=== PATIENT | male | born 1990 | race Caucasian/White ===

== ENCOUNTER 2018-05-01 14:47 | Emergency (ER) | payer OTHER ==
[~2018-05-01] VITALS: Ht 170.1 cm; Wt 63.5 kg
== END 2018-05-01 17:10 | disposition home or self-care (01) ==
LOC: ED 14:47
DX: S60.221A Contusion of right hand, initial encounter (principal); Z88.6 Allergy status to analgesic agent; Z88.8 Allergy status to other drugs, medicaments and biological substances; W22.8XXA Striking against or struck by other objects, initial encounter; Y93.89 Activity, other specified; Y92.89 Other specified places as the place of occurrence of the external cause; Y99.8 Other external cause status

== ENCOUNTER 2018-11-08 11:48 | Inpatient (IN) | payer OTHER ==
[~2018-11-08] VITALS: Ht 170.2 cm; Wt 56.4 kg
--- NOTE | ~2018-11-08 | CON ---
[place], [place] REPORT OF CONSULTATION NAME: SOFY MUNOZ UNIT #: [id number] ROOM: 425 DOCTOR: PATRICK, PHD AZAEL BIRTHDATE: [birth year] DOS: 11/09/2018 ADDENDUM PAST MEDICAL HISTORY: Chronic pancreatitis. MEDICATIONS: Tylenol, Dulcolax, Lovenox, Dilaudid, Toradol, Ativan, Zofran, Restoril. Maureen Smith, PhD CM:CONSTR:REPORT OF CONSULTATION 0914 11/22/18 1059 interface
--- NOTE | ~2018-11-08 | CON ---
[place], [place] REPORT OF CONSULTATION NAME: SOFY MUNOZ UNIT #: [id number] ROOM: 425 DOCTOR: PHD AZAEL SMTIH BIRTHDATE: [birth year] DOS: 11/09/2018 HISTORY OF PRESENT ILLNESS: The patient is a 27-year-old male referred by the hospitalist due to anxiety. He is presently on the 4th floor at [facility]. He lives with his fiancee and her mother. He is not working due to his issues with pancreatitis and is hoping to pursue disability. He does not drink alcohol, but endorsed tobacco and marijuana use. The patient was sitting in bed, in no apparent distress. Eye contact and social skills were poor. He appeared to be nodding off. He appeared to be very drowsy during the evaluation. Mood was irritable and affect was blunted. He denied suicidal and homicidal ideation, plan or intent. He is not currently receiving mental health services. Speech was low. Expressive and receptive language appeared within normal limits on a conversational basis. Thought process was goal directed. Thought content was negative for hallucinations and delusions. The patient was guarded and not cooperative with evaluation. He stated "if I want, I'll ask." He stated that he did not wish to continue with evaluation and is not looking for any counseling or psychiatric medications at this time. PAST MEDICAL HISTORY: Chronic pancreatitis. MEDICATIONS: Tylenol, Dulcolax, Lovenox, Dilaudid, Toradol, Ativan, Zofran, Restoril. DIAGNOSES: Cannabis use disorder, tobacco use disorder, unspecified anxiety disorder. RECOMMENDATIONS: The patient is not wishing to receive services at this time if that changes please reconsult. Thank you very much for this consult. Maureen Smith, PhD CM:CONSTR:REPORT OF CONSULTATION 1626 11/22/18 1057 interface
[2018-11-08 11:52] VITALS: BP 111/77
[2018-11-08 12:00] LABS: BILIRUBIN 1+ (NEGATIVE); BLOOD NEGATIVE (NEGATIVE); CLARITY SL CLOUDY (CLEAR); COLOR YELLOW (YELLOW); GLUCOSE NEGATIVE (NEGATIVE); KETONE TRACE (NEGATIVE); LEUKO ESTERASE NEGATIVE (NEGATIVE); NITRITE NEGATIVE (NEGATIVE); SPECIFIC GRAVITY 1.025 (1.005-1.030)
[2018-11-08 12:08] LABS: BACTERIA 1+; MUCOUS 2+
[2018-11-08 12:35] LABS: URINE AMPHETAMINES > 1000 (1000ng/ml); URINE BARBITURATES < 200 (200ng/ml); URINE BENZODIAZEPINES < 200 (200ng/ml); URINE CANNABINOIDS (THC) > 50 (50ng/ml); URINE COCAINE < 300 (300ng/ml); URINE METHADONE < 300 (300ng/ml); URINE OPIATES < 300 (300ng/ml)
[2018-11-08 12:36] LABS: URINE PHENCYCLIDINE < 25 (25ng/ml)
[2018-11-08 12:40] LABS: BASO # 0.1 10*3/uL (0.0-0.1); BASO % 0.8 % (0.0-1.0); EOS # 0.5 10*3/uL (0.0-0.4); EOS % 6.9 % (1.0-4.0); HEMATOCRIT 42.3 % (42.0-52.0); HEMOGLOBIN 14.7 g/dl (14.0-18.0); LYMPH # 2.1 10*3/uL (1.3-4.4); LYMPH % 32.9 % (27.0-41.0); MEAN CELL VOLUME 91.6 fl (80.0-94.0); MEAN CORPUSCULAR HGB 31.8 pg (27.0-31.0); MEAN CORPUSCULAR HGB CONC 34.8 g/dl (33.0-37.0); MEAN PLATELET VOLUME 9.5 fl (9.6-12.3); MONO # 0.5 10*3/uL (0.1-1.0); MONO % 7.1 % (3.0-9.0); NEUT # 3.4 10*3/uL (2.3-7.9); NEUT % 52.1 % (47.0-73.0); PLATELET COUNT AUTOMATED 317 10*3/uL (130-400); RED BLOOD COUNT 4.62 10*6/uL (4.50-5.90); RED CELL DISTRI WIDTH 11.9 % (0-14.5); WHITE BLOOD COUNT 6.5 10*3/uL (4.8-10.8)
[2018-11-08 12:50] LABS: ACT PARTIAL THROMBO TIME 23.9 SECONDS (20.8-31.5); INTERNATIONAL NORM RATIO 1.1 (2.0-3.5)
[2018-11-08 12:57] LABS: ALBUMIN 3.8 gm/dl (3.1-4.5); ALKALINE PHOSPHATASE 77 U/L (45-117); BUN 11 mg/dl (7-24); CHLORIDE 104 mmol/L (98-107); CREATININE 0.97 mg/dL (0.70-1.30); LIPASE 448 U/L (73-393); POTASSIUM 3.5 mmol/L (3.5-5.1); SGOT/AST 14 IU/L (3-35); SGPT/ALT 23 U/L (12-78); SODIUM 142 mmol/L (136-145); TOTAL PROTEIN 7.9 gm/dL (6.4-8.2)
[2018-11-08 13:03] LABS: ETHYL ALCOHOL < 3.0 mg/dl (<3)
[2018-11-08 13:50] VITALS: BP 105/59
--- NOTE | 2018-11-08 15:18 | NUR ---
PT STATES NONE OF THE PAIN MEDICATIONS ARE WORKING. DR MONTES NOTIFIED.
--- NOTE | 2018-11-08 15:30 | NUR ---
Dilaudid effective. Patient states "it took the edge off."
[2018-11-08 15:50] VITALS: BP 128/76
--- NOTE | 2018-11-08 15:51 | NUR ---
Dilaudid given for patient c/o abdominal pain. Will monitor.
--- NOTE | 2018-11-08 15:55 | NUR ---
A 27, admitted to , under the services of JOHNNY Panchal DO with a diagnosis of pancreatitis. Chief complaint is abdominal pain. Patient arrived via stretcher from ER. Monitor applied. Initial assessment completed. Vital signs taken and recorded. JOHNNY PANCHAL DO notified of admission to the unit. Orders received. See assessment for past medical history, medications and allergies. Patient and/or family oriented to unit. [address] visitation policy reviewed. Clothing/patient valuable form completed. YAHAIRA MOYER
[2018-11-08 16:00] VITALS: BP 128/75
--- NOTE | 2018-11-08 16:13 | NUR ---
Called Dr. Watson to let him know patient is extremely anxious. He is picking, scratching himself, pacing around the room, talking nonstop. Requested ativan.
--- NOTE | 2018-11-08 17:00 | NUR ---
Ativan given to obvious signs of anxiety. Patient is scratching himself, picking at his skin and pacing around room. Will monitor.
--- NOTE | 2018-11-08 17:12 | NUR ---
Notified Dr. Watson that patient stated "I want to fucking kill myself!" "Its a thought!" "You are not going to put me on fucking suicide watch!" "All I want is something to eat!" "I'm fucking starving!"
--- NOTE | 2018-11-08 18:20 | NUR ---
Dilaudid given per patient request for c/o abdominal pain. Will monitor. Ativan effective. Patient is showing less signs of anxiety and has calmed down.
--- NOTE | 2018-11-08 18:35 | NUR ---
Contacted U regarding consult for anxiety/anger/medication. No new orders physician to follow up at bedside.
--- NOTE | 2018-11-08 19:07 | NUR ---
Dilaudid somewhat effective. Patient satisfied.
--- NOTE | 2018-11-08 19:30 | NUR ---
PATIET IS VERY AGITATED AT THE NURSES STATION YELLING AND CURSING ABOUT BEING "UNCOMFORTABLE" AND NOBODY CAREING. "THIS IS WHY I DONT COME TO HOSPITALS, NOBODY CARES AND I DONT GET THE CARE I NEED. THE LAST HOSPITAL I WAS IN I LEFT IN HANDCUFFS, IM NOT GOING TO BE TREATED LIKE A BITCH." ADVISED PATIENT THAT THIS BEHAVIOR WAS NOT ACCEPTABLE. NOTIFIED HIM WHEN HE WAS DO FOR HIS NEX PAIN MEDICATION AND ADVISED HIM I WOULD TALK TO THE DOCTOR ABOUT HIS PAIN.
--- NOTE | 2018-11-08 19:31 | NUR ---
SPOKE WITH DR. MARCOS REGARDING PATIENTS PAIN. SHE STATED SHE WOULD INCREASE THE FREQUANCY OF HIS DILAUDED.
[2018-11-08 20:00] VITALS: BP 99/85
--- NOTE | 2018-11-08 20:45 | NUR ---
PATIENT CONTINUES TO COME TO NURSES STATION AND BE DISRUPTIVE. YELLING HE WAS PROMISED DEMEROL BETWEEN HIS DILAUDED AND HE IS BENNIE TO LEAVE. I ASKED WHO PROMISED HIM DEMOROL AND ADVISED ID SPEAK WITH THE DOCTOR AGAIN REGARDING THIS. PATIENT LEAVES NURSES STATION AND SHOUTS CONTINUOUSLY HE WALKS DOWN THE JOHN. SPOKE TO DR. MARCOS REGARDING THIS AT WHICH SHE STATED SHE WAS NOT GOING TO ORDER DEMEROL.
--- NOTE | 2018-11-08 21:00 | NUR ---
ADVISED PATIENT THAT DR. MARCOS DID NOT ORDER DEMEROL. PATIENT STATES "THIS PLACE IS A JOKE, YOU GUYS ARE SUPPOSE TO HELP PEOPLE." I ATTEMPTED TO EDUCATE THE PATIENT ON THE DOSE FREQUENCY AND OVERALL STRENGTH OF HIS PAIN MEDICATION AND HE WAS NOT RECEPTIVE STATING "YOU GUYS ARE SO STUPID NOTHING YOU HAVE DONE HAS HELPED ME".
--- NOTE | 2018-11-08 21:03 | NUR ---
CALLED NURSING CANCER PROGRAM COORDINATOR AT THIS TIME REGARDING PATIENTS BEHAVIOR. NURSING CANCER PROGRAM COORDINATOR IN ROOM WITH PATIENT AT THIS TIME. PATIENT IS AGAIN VERBALLY AGRESSIVE AND NOT RECEPTIVE OF REDIRECTION OR ANY ATTEMPT OF ANY COMMUNICATION. ADVISED PATIENT THAT HIS DILAUDED IS NOW AVAILABLE Q1 HOUR NEEDED. "SO IM JUST SUPPOSE TO SUFFER IN THE MEAN TIME".
--- NOTE | 2018-11-08 21:04 | NUR ---
MEDICATED PATIENT WITH DILAUDED IVP PER ORDER. PAIN LEVEL IS 9/10
--- NOTE | 2018-11-08 21:30 | NUR ---
PATIENT APPROACHES ME IM IN A PATIENTS ROOM (522) REGARDING WHEN HE CAN HAVE SOMETHING ELSE FOR PAIN. I ADVISED HIM THAT WE PREVIOUSLY DISCUSSED THIS AND ITS WRITTEN ON HIS WHITE BOARD. ASKED HIM TO PLEASE LEAVE THE PATIENTS ROOM. "ILL DO WHATEVER THE FUCK I WANT, IM A GROWN MAN AND NOBODY IS GOING TO TALK YTO ME LIKE DOG SHIT". PATIENT CONTINUELLY ROAMED THE JOHN WAITING FOR HIS NEXT AVAILABLE PAIN MEDICATION. WHEN ATTEMPTED TO HAVE PATIENT GO TO HIS ROOM HE STATED HE WAS TRYING TO GET COMFORTABLE AND WALKING HELPS.
--- NOTE | 2018-11-08 22:00 | NUR ---
DILAUDED NOT EFFECTIVE WITH PAIN STILL 9/10 PER PATIENT. ADMINISTERED ANOTHER DOSE OF DILAUDED AT THIS TIME FOR PAIN.
--- NOTE | 2018-11-08 23:00 | NUR ---
PATIENT IS CONSTANTLY WALKING IN THE HALLS. VERY UNSTEADY ON HIS FEET. STUMBLING AND DRIFTING INTO THE WALL. ADVISED PATIENT HE NEEDED TO GO TO HIS ROOM BEFORE HE FELL AND GOT HURT. PATIENT IS VERY ARGUMENTATIVE AND NOT COOPERATIVE AT THIS TIME. MANAGER ENVIRONMENTAL AFFAIRS NOTIFIED AND SECURITY CALLED. BOTH IN ROOM TO SPEAK WITH PATIENT. REMAINS VERBALLY AGRESSIVE. STATES HE IS GOING OUTSIDE FOR FRESH AIR. I ADVISED HIM THATS AGAINST POLICY AND HE WOULDNT BE ALOUD TO DO THAT. HE STATES HE WILL JUST SUFFER. HE STATES HE NEEDS TO SPEAK TO A PSYCHIATRIST. HE CANT JUST SIT IN THIS ROOM. ADVISED THAT HE IS A FALL RISK WITH THE MEDICATIONS THAT HE HAS BEEN RECEIVING.
--- NOTE | 2018-11-08 23:05 | NUR ---
PATIENT PULLED IV OUT. ESTABLISHED NEW IV ACCESS AT THIS TIME.
--- NOTE | 2018-11-08 23:11 | NUR ---
ADMINISERED IV DILAUDED PER ORDER FOR PAIN 06/28
[2018-11-09] VITALS: BP 111/84
--- NOTE | 2018-11-09 00:31 | NUR ---
ADMINISTERED IV ATIVAN AND IV DILAUDED PER ORDER FOR COMPLAINTS OF PAIN9/10 AND INCREASED ANXIETY AND AGITATION. PATIENT STATES HE NEEDS SOMETHING TYO HELP HIM RELAX SO HE CAN SLEEP.
--- NOTE | 2018-11-09 02:47 | NUR ---
PATIENT COMPLAINS OF PAIN 05/29. MEDICATED WITH IV DILAUDED PER ORDER.
--- NOTE | 2018-11-09 03:15 | NUR ---
PATIENT IS RESTING IN BED WITH NO SIGNS OF DISTRESS.
--- NOTE | 2018-11-09 03:56 | NUR ---
PATIENT STATES HIS PAIN IS UNCHANGED. STATES THE PAIN MEDICATION DOES NOTHING FOR HIM. MEDIACTED WITH IV DILAUDED PER ORDER.
--- NOTE | 2018-11-09 04:04 | NUR ---
NOTIFIED THE NURSING SUPERVISOPR OF THIS PATIENTS BEHAVIORS. FOOD EXPEDITOR IN ROOM TALKING TO PATIENT AT THIS TIME. PATIENT AGAIN NOT RECEPTIVE OF ANY ATTEMPT TO REDIRECT OR EVEN COMMUNICATE. HE IMMEDIATELY STARTS YELLING BEING VERY VERBALLY AGRESSIVE. ADVISED PATIENT AT THIS TIME HE IS GETTING DILAUDED Q1 HOUR.
--- NOTE | 2018-11-09 04:10 | NUR ---
IN TO CHECK ON PATIENT. HE IS SITTING ON THE FLOOR SLEEPING. ASKED PATIENT WHY HE WAS ON THE FLOOR AND HE STATES ITS COMFORTABEL TO SIT LIKE THIS AM I NOT ALLOWED. ADVISED PATIENT IF HE WANTS TO SIT ON THE FLOOR GO AHEAD.
--- NOTE | 2018-11-09 04:43 | NUR ---
PATIENT REQUESTING PAIN MEDICATIONS AT THIS TIME. ADVISED PATIENT THAT IT ISNT DUE AT THIS. HE STATES "IM TIRED OF THIS FUCKING BULLSHIT, IM GOING TO JUST LEAVE AND IM HOMELESS SO WHEN I FREEZE TO MY WILL BE ON YOU GUYS". I ADVISED THE PATIENT THAT IF HE WAS TO LEAVE IT WOULD BE AGAINST MEDICAL ADVISE AND ANY DECISIONS AND OR CONSEQUENCES WOULD BE HIS OWN RESPONSIBILITY.
--- NOTE | 2018-11-09 05:10 | NUR ---
PATIENT COMPLAINS OF BEING NAUSEATED, PAIN 9/10, AND ANXIETY. STATES HE FEELS LIKE HE IS GOING TO CRAWL OUT OF HIS SKIN. PATIENT APPEARS VERY DROWSY AND UNABLE TO KEEP HIS EYES OPEN DURNING CONVERSATION. PATIENTS HEAD BOPS CONSTANTLY. I ADVISED PATIENT HE CAN BARELY HOLD HIMSELF UP AND I DONT KNOW IF CONTINUEING TO MEDICATE HIM IS APPROPRIATE. HE SCREAMS HE IS FINE JUST EXHAUSTED CAUSE HE HASNT SLEPT IN A WEEK. STATES HE IS SUPPOSE TO BE ABLE TO GET HIS MEDICATION EVERY HOUR. MEDICATED PATIENT PER ORDER WITH IV DILAUDED, ATIVAN AND ZOFRAN.
--- NOTE | 2018-11-09 06:13 | NUR ---
PATIENT FOUND WONDERING IN HALLWAY ATTEMPTING TO OPEN BREAKROOM DOOR. WHEN I ASKED PATIENT WHAT HE WAS DOING HE STATED WALKING AROUND. HIS WORDS ARE SLURRED AND APPEARS TO BE DISORIENTED AND UNABLE TO BALANCE HIMSELF DFTS6PM LEANING ON THE WALL. I EXPLAINED TO THE PATIENT WE HAVE ALREADY DISCUSSED THE WALKING IN THE HALLWAY. HE STATES IM LEAVING, I CANT DO ANYTHING, THIS IS LIKE A SKILLED NURSING. I ADVISED PATIENT ITS FOR HIS SAFETY.
--- NOTE | 2018-11-09 06:19 | NUR ---
SPOKE TO DR. MARCOS REGARDING CURRENT STATE OF THIS PATIENT. SHE STATES TO HOLD DILAUDED UNTIL RE-EVALUATIO OF PATIENT AND HER IS NO LONGER SLURRING SPEECH AND IS ABLE TO KEEP HIS BALANCE WITHOUT ASSISTANCE.
[2018-11-09 06:27] LABS: BASO # 0.1 10*3/uL (0.0-0.1); BASO % 0.7 % (0.0-1.0); EOS # 0.4 10*3/uL (0.0-0.4); EOS % 4.1 % (1.0-4.0); HEMATOCRIT 37.2 % (42.0-52.0); LYMPH # 2.3 10*3/uL (1.3-4.4); LYMPH % 26.3 % (27.0-41.0); MEAN CORPUSCULAR HGB 31.1 pg (27.0-31.0); MEAN CORPUSCULAR HGB CONC 32.8 g/dl (33.0-37.0); MEAN PLATELET VOLUME 10.2 fl (9.6-12.3); MONO # 0.6 10*3/uL (0.1-1.0); MONO % 6.9 % (3.0-9.0); NEUT # 5.5 10*3/uL (2.3-7.9); NEUT % 61.9 % (47.0-73.0); PLATELET COUNT AUTOMATED 265 10*3/uL (130-400); RED BLOOD COUNT 3.92 10*6/uL (4.50-5.90); RED CELL DISTRI WIDTH 11.9 % (0-14.5); WHITE BLOOD COUNT 8.9 10*3/uL (4.8-10.8)
[2018-11-09 06:43] LABS: HEMOGLOBIN 12.2 g/dl (14.0-18.0); MEAN CELL VOLUME 94.9 fl (80.0-94.0)
[2018-11-09 06:57] LABS: ALBUMIN 3.7 gm/dl (3.1-4.5); BUN 10 mg/dl (7-24); CHLORIDE 105 mmol/L (98-107); CHOLESTEROL 108 mg/dL (<200); CREATININE 0.72 mg/dL (0.70-1.30); PHOSPHOROUS 2.9 mg/dL (2.5-4.9); POTASSIUM 3.4 mmol/L (3.5-5.1); SGOT/AST 15 IU/L (3-35); SGPT/ALT 22 U/L (12-78); SODIUM 143 mmol/L (136-145); TRIGLYCERIDES 108 mg/dl (<150); VLDL CHOLESTEROL 22 mg/dL (6-40)
[2018-11-09 07:04] LABS: ALKALINE PHOSPHATASE 63 U/L (45-117); HDL CHOLESTEROL 25 mg/dl (40-60); LDL CHOLESTEROL 61 mg/dL (9-159)
[2018-11-09 07:53] LABS: VITAMIN D, 25-HYDROXY 16.5 ng/mL (30-100)
[2018-11-09 08:00] VITALS: BP 136/86
--- NOTE | 2018-11-09 09:00 | NUR ---
case management visited with patient, patient states that he didn't need anything, case management will follow for any home needs
--- NOTE | 2018-11-09 10:30 | NUR ---
PT REQUESTED PAIN MEDICATION FOR ABD PAIN,06/28. UPON ARRIVAL TO ROOM PT IS SLEEPING. RATHER THAN DISTURB HIM I WILL MEDICATE PT WHEN HE WAKES UP.
--- NOTE | 2018-11-09 10:59 | NUR ---
MEDICATED PT WITH 0.25 MG DILAUDID FOR C/O ABD PAIN,06/28. ZOFRAN 4 MG GIVEN PER PT REQUERST FOR NAUSEA.
--- NOTE | 2018-11-09 12:03 | NUR ---
PT STANDING IN DOORWAY OF ROOM SOLICTING STAFF PASSING BY TO "GIVE ME MY PAIN MEDS THAT ARE DUE". WHEN STAFF STATED THAT THEY WOULD LET ME KNOW HE BECAME AGITATED . ONCE NOTIFIED, I INFORMED STAFF TO NOT ENGAGE WITH THE PT BECAUSDE HE ALREADY HAD ORDERED PAIN MEDS AND LET ME KNOW. I THEN INFORMED THE PT THAT HE HAD BEEN MEDICATED PER DR ALTAMIRANO'S ORDER AND HE BECAME AGITATED AND BEGAN SCREAMING THE "F WORD". I IMMMEDIATELY DEMANDED HIM TO STOP BEING DISRUPTIVE AND INAPPROPRIATE BEHAVIOR IS NOT CONDONED. I ALSO TOLD HIM THAT THIS BEHAVIOR IS NOT TOLERATED HE WAS DISTURBING NEIGHBORING PATIENT'S.PT THEN BECAME CALM AND REFUSED TO SPEAK SO I EXITED THE ROOM AND CLOSED THE DOOR.
--- NOTE | 2018-11-09 12:04 | NUR ---
ATTEMPTED TO NOTIFY DR GREENFIELD OF NEW CONSULT,NO ANSWER.WILL REATTEMPT NOTIFICATION.
--- NOTE | 2018-11-09 12:31 | NUR ---
ATTEMPTED TO NOTIFY DR GREENFIELD OF NEW CONSULT, MESSAGE LEFT VIA CELL PHONE TO RETURN MY CALL.WILL REATTEMPT TO NOTIFY HIM AGAIN.
--- NOTE | 2018-11-09 12:33 | NUR ---
NOTIFYTED DR ALTAMIRANO THAT I WAS UNABLE TO REACH DR GREENFIELD AT THIS TIME AND WOULD CONTINUE TO TRY TO REACH HIM.
--- NOTE | 2018-11-09 13:10 | NUR ---
DILAUDID 0.25 MG GIVEN FOR C/O ABD PAIN,05/29.
--- NOTE | 2018-11-09 14:21 | NUR ---
DR GREENFIELD RETURNED MY CALL AND STATED THAT HE IS UNABLE TO SEE THIS PT AND THAT HE WILL BE OUT OF TOWN FOR NEXT 4 DAYS.
--- NOTE | 2018-11-09 15:06 | NUR ---
DILAUDID 0.25 MG GIVEN FOR C/O ABD PAIN,05/29.
[2018-11-09 16:00] VITALS: BP 128/90
--- NOTE | 2018-11-09 17:09 | NUR ---
DILAUDID 0.25 MG GIVEN FOR C/O ABD PAIN,05/29.ZOFRAN 4 MG GIVEN FOR C/O NAUSEA.
--- NOTE | 2018-11-09 19:20 | NUR ---
PATIENT MEDICATED WITH DILAUDID FOR COMPLAINTS OF PAIN. RESPIRATIONS REGULAR AND NON-LABORED. WILL CONTINUE TO MONITOR. CALL LIGHT IN REACH.
--- NOTE | 2018-11-09 20:00 | NUR ---
PATIENT REFUSED VITALS AT THIS TIME.
[2018-11-10] VITALS: BP 106/71
--- NOTE | 2018-11-10 04:16 | NUR ---
PATIENT MEDICATED WITH DILAUDID FOR COMPLAINTS OF ABDOMINAL PAIN AND ZOFRAN FOR COMPLAINTS OF NAUSEA. WILL CONTINUE TO MONITOR. CALL LIGHT IN REACH.
[2018-11-10 07:26] LABS: BASO # 0.1 10*3/uL (0.0-0.1); BASO % 0.7 % (0.0-1.0); EOS # 0.5 10*3/uL (0.0-0.4); EOS % 7.9 % (1.0-4.0); HEMATOCRIT 35.1 % (42.0-52.0); LYMPH # 2.7 10*3/uL (1.3-4.4); LYMPH % 39.6 % (27.0-41.0); MEAN CELL VOLUME 93.4 fl (80.0-94.0); MEAN CORPUSCULAR HGB 31.9 pg (27.0-31.0); MEAN CORPUSCULAR HGB CONC 34.2 g/dl (33.0-37.0); MEAN PLATELET VOLUME 9.8 fl (9.6-12.3); MONO # 0.5 10*3/uL (0.1-1.0); MONO % 7.3 % (3.0-9.0); NEUT # 3.1 10*3/uL (2.3-7.9); NEUT % 44.4 % (47.0-73.0); PLATELET COUNT AUTOMATED 245 10*3/uL (130-400); RED BLOOD COUNT 3.76 10*6/uL (4.50-5.90); RED CELL DISTRI WIDTH 11.9 % (0-14.5); WHITE BLOOD COUNT 6.9 10*3/uL (4.8-10.8)
--- NOTE | 2018-11-10 07:39 | NUR ---
ATIVAN 0.5 MG GIVEN FOR C/O ANXIETY.
[2018-11-10 07:57] LABS: ALBUMIN 3.3 gm/dl (3.1-4.5); ALKALINE PHOSPHATASE 60 U/L (45-117); BUN 5 mg/dl (7-24); CHLORIDE 105 mmol/L (98-107); CREATININE 0.79 mg/dL (0.70-1.30); LIPASE 1106 U/L (73-393); PHOSPHOROUS 2.9 mg/dL (2.5-4.9); POTASSIUM 3.7 mmol/L (3.5-5.1); SGOT/AST 12 IU/L (3-35); SGPT/ALT 19 U/L (12-78); SODIUM 142 mmol/L (136-145); TOTAL PROTEIN 6.4 gm/dL (6.4-8.2)
[2018-11-10 08:00] VITALS: BP 106/66
--- NOTE | 2018-11-10 09:42 | NUR ---
Dilaudid 0.25 mg given for c/o abd pain,05/29.
--- NOTE | 2018-11-10 10:28 | NUR ---
ZOFRAN 4 MG GIVEN FOR C/O NAUSEA.
[2018-11-10 12:00] VITALS: BP 114/65
--- NOTE | 2018-11-10 12:30 | NUR ---
Patient signed out AMA. Patient encouraged to stay and advised of possible consequences of premature discharge. Physician ADARSH and emergency crew supervisor DURAN SILVERIO RN notified. Patient instructed what to do regarding care post-departure from the hospital; emergency phone numbers provided. Patent was accompanied by GIRLFRIEND. AMARILIS VANG
== END 2018-11-10 13:29 | disposition left against medical advice (07) | DRG 439 ==
LOC: ED 11:48 → EDHOLD 14:37 → 4E 14:37
PROVIDERS: Internal Medicine; ADMIT Emergency Medicine
DX: K85.90 Acute pancreatitis without necrosis or infection, unspecified (principal); E87.2 Acidosis; R10.9 Unspecified abdominal pain; K86.1 Other chronic pancreatitis; F41.9 Anxiety disorder, unspecified; D53.9 Nutritional anemia, unspecified; F15.10 Other stimulant abuse, uncomplicated; E78.5 Hyperlipidemia, unspecified; Z53.21 Procedure and treatment not carried out due to patient leaving prior to being seen by health care provider; F12.10 Cannabis abuse, uncomplicated; Z72.0 Tobacco use; Z88.5 Allergy status to narcotic agent; Z88.8 Allergy status to other drugs, medicaments and biological substances; Z83.49 Family history of other endocrine, nutritional and metabolic diseases; Z84.89 Family history of other specified conditions

== ENCOUNTER 2019-02-04 10:51 | Emergency (ER) | payer OTHER ==
[~2019-02-04] VITALS: Ht 170.1 cm; Wt 56.7 kg
--- NOTE | ~2019-02-04 | EKG ---
[place], [place] ELECTROCARDIOGRAM REPORT NAME: SOFY MUNOZ UNIT #: [id number] ROOM: DOCTOR: ROSLYN DRAFT REPORT BIRTHDATE: [birth year] [facility] Test Date: 2019-02-04 Test Time: 16:27:27 Pat Name: SOFY MUNOZ Department: Room: Gender: Public Health Nutritionist: EKG.MD : 1990 Requested By: SURENDRA HERNANDEZ Order Number: [id number] Reading MD: Richard Sherman MD Measurements Intervals [place] Rate: 65 P: 52 GA: 149 QRS: 52 QRSD: 94 T: 64 QT: 410 QTc: 427 Interpretive Statements Sinus rhythm RSR' in V1 or V2, probably normal variant Electronically Signed On 02-09-2019 9:30:54 PDT by Richard Sherman MD CM:EKGRPT:ELECTROCARDIOGRAM REPORT 1627 0930 SURENDRA MCGOWAN DRAFT REPORT SURENDRA MARTINEZ
[2019-02-04 12:12] LABS: BASO # 0.1 10*3/uL (0.0-0.1); EOS # 0.4 10*3/uL (0.0-0.4); EOS % 7.2 % (1.0-4.0); HEMATOCRIT 42.1 % (42.0-52.0); HEMOGLOBIN 14.1 g/dl (14.0-18.0); LYMPH # 2.1 10*3/uL (1.3-4.4); LYMPH % 33.7 % (27.0-41.0); MEAN CELL VOLUME 97.5 fl (80.0-94.0); MEAN CORPUSCULAR HGB 32.6 pg (27.0-31.0); MEAN CORPUSCULAR HGB CONC 33.5 g/dl (33.0-37.0); MEAN PLATELET VOLUME 8.9 fl (9.6-12.3); MONO # 0.4 10*3/uL (0.1-1.0); MONO % 6.7 % (3.0-9.0); NEUT # 3.1 10*3/uL (2.3-7.9); NEUT % 51.2 % (47.0-73.0); PLATELET COUNT AUTOMATED 312 10*3/uL (130-400); RED BLOOD COUNT 4.32 10*6/uL (4.50-5.90); RED CELL DISTRI WIDTH 13.1 % (0-14.5); WHITE BLOOD COUNT 6.1 10*3/uL (4.8-10.8)
[2019-02-04 12:20] LABS: BILIRUBIN NEGATIVE (NEGATIVE); BLOOD NEGATIVE (NEGATIVE); CLARITY CLEAR (CLEAR); COLOR STRAW (YELLOW); GLUCOSE NEGATIVE (NEGATIVE); KETONE NEGATIVE (NEGATIVE); LEUKO ESTERASE NEGATIVE (NEGATIVE); NITRITE NEGATIVE (NEGATIVE); SPECIFIC GRAVITY <= 1.005 (1.005-1.030); UROBILINOGEN 0.2 E.U./dl (0.2-1.0)
[2019-02-04 12:28] LABS: ALBUMIN 3.9 gm/dl (3.1-4.5); ALKALINE PHOSPHATASE 70 U/L (45-117); BUN 11 mg/dl (7-24); CHLORIDE 103 mmol/L (98-107); CREATININE 0.78 mg/dL (0.70-1.30); LIPASE 165 U/L (73-393); POTASSIUM 4.4 mmol/L (3.5-5.1); SGOT/AST 10 IU/L (3-35); SGPT/ALT 19 U/L (12-78); SODIUM 140 mmol/L (136-145); TOTAL PROTEIN 7.2 gm/dL (6.4-8.2)
[2019-02-04 12:34] LABS: BACTERIA TRACE
== END 2019-02-04 16:30 | disposition home or self-care (01) ==
LOC: ED 10:51
PROVIDERS: Physician Assistant
DX: R09.1 Pleurisy (principal); R10.12 Left upper quadrant pain; F17.200 Nicotine dependence, unspecified, uncomplicated; Z88.8 Allergy status to other drugs, medicaments and biological substances; Z88.5 Allergy status to narcotic agent; Z88.6 Allergy status to analgesic agent

== ENCOUNTER 2019-04-07 19:02 | Emergency (ER) | payer OTHER ==
[~2019-04-07] VITALS: Ht 170.1 cm; Wt 59.0 kg
[2019-04-07 19:20] LABS: BASO % 0.4 % (0.0-1.0); EOS # 0.2 10*3/uL (0.0-0.4); EOS % 2.2 % (1.0-4.0); HEMATOCRIT 40.7 % (42.0-52.0); HEMOGLOBIN 13.5 g/dl (14.0-18.0); LYMPH # 2.5 10*3/uL (1.3-4.4); LYMPH % 27.5 % (27.0-41.0); MEAN CELL VOLUME 96.9 fl (80.0-94.0); MEAN CORPUSCULAR HGB 32.1 pg (27.0-31.0); MEAN CORPUSCULAR HGB CONC 33.2 g/dl (33.0-37.0); MEAN PLATELET VOLUME 8.7 fl (9.6-12.3); MONO # 0.6 10*3/uL (0.1-1.0); MONO % 6.1 % (3.0-9.0); NEUT # 5.8 10*3/uL (2.3-7.9); NEUT % 63.6 % (47.0-73.0); PLATELET COUNT AUTOMATED 270 10*3/uL (130-400); RED CELL DISTRI WIDTH 12.3 % (0-14.5); WHITE BLOOD COUNT 9.1 10*3/uL (4.8-10.8)
[2019-04-07 19:35] LABS: ALKALINE PHOSPHATASE 72 U/L (45-117); BUN 9 mg/dl (7-24); CHLORIDE 106 mmol/L (98-107); CREATININE 0.77 mg/dL (0.70-1.30); LIPASE 277 U/L (73-393); POTASSIUM 3.8 mmol/L (3.5-5.1); SGOT/AST 12 IU/L (3-35); SGPT/ALT 20 U/L (12-78); SODIUM 141 mmol/L (136-145); TOTAL PROTEIN 7.6 gm/dL (6.4-8.2)
[2019-04-07 20:17] LABS: BILIRUBIN NEGATIVE (NEGATIVE); BLOOD NEGATIVE (NEGATIVE); CLARITY CLEAR (CLEAR); COLOR YELLOW (YELLOW); GLUCOSE NEGATIVE (NEGATIVE); KETONE NEGATIVE (NEGATIVE); LEUKO ESTERASE NEGATIVE (NEGATIVE); NITRITE NEGATIVE (NEGATIVE); PH 7.5 (5.0-9.0); UROBILINOGEN 0.2 E.U./dl (0.2-1.0)
[2019-04-07 20:39] LABS: WBC 0-2 wbc/hpf (0-5)
== END 2019-04-07 22:10 ==
LOC: ED 19:02
PROVIDERS: Student in an Organized Health Care Education/Training Program
DX: R11.10 Vomiting, unspecified (principal); R10.12 Left upper quadrant pain; R10.32 Left lower quadrant pain; R51 Headache; R68.83 Chills (without fever); R19.7 Diarrhea, unspecified; F17.200 Nicotine dependence, unspecified, uncomplicated; Z88.6 Allergy status to analgesic agent; Z88.8 Allergy status to other drugs, medicaments and biological substances

== ENCOUNTER 2021-07-29 04:45 | Inpatient (IN) | payer OTHER ==
[~2021-07-29] VITALS: Ht 172.7 cm; Wt 63.5 kg
[2021-07-29 04:54] VITALS: BP 138/79
[2021-07-29 05:37] LABS: ALBUMIN 3.9 gm/dl (3.1-4.5); ALKALINE PHOSPHATASE 95 U/L (45-117); BUN 22 mg/dl (7-24); CHLORIDE 107 mmol/L (98-107); LIPASE 400 U/L (73-393); POTASSIUM 3.9 mmol/L (3.5-5.1); SGOT/AST 21 IU/L (3-35); SGPT/ALT 112 U/L (12-78); SODIUM 140 mmol/L (136-145)
[2021-07-29 06:02] LABS: BASO % 0.4 % (0.0-1.0); EOS # 0.3 10*3/uL (0.0-0.4); HEMATOCRIT 41.6 % (42.0-52.0); LYMPH # 2.2 10*3/uL (1.3-4.4); LYMPH % 22.2 % (27.0-41.0); MEAN CELL VOLUME 96.1 fl (80.0-94.0); MEAN CORPUSCULAR HGB 31.9 pg (27.0-31.0); MEAN CORPUSCULAR HGB CONC 33.2 g/dl (33.0-37.0); MEAN PLATELET VOLUME 9.3 fl (9.6-12.3); MONO # 0.7 10*3/uL (0.1-1.0); MONO % 6.7 % (3.0-9.0); NEUT # 6.5 10*3/uL (2.3-7.9); NEUT % 66.5 % (47.0-73.0); PLATELET COUNT AUTOMATED 309 10*3/uL (130-400); RED BLOOD COUNT 4.33 10*6/uL (4.50-5.90); RED CELL DISTRI WIDTH 12.9 % (0-14.5); WHITE BLOOD COUNT 9.7 10*3/uL (4.8-10.8)
[2021-07-29 06:21] LABS: TOTAL PROTEIN 7.5 gm/dL (6.4-8.2)
[2021-07-29 10:15] VITALS: BP 108/70
[2021-07-29 15:30] VITALS: BP 110/70
== END 2021-07-29 16:00 | disposition left against medical advice (07) | DRG 281 ==
LOC: ED 04:45 → EDHOLD 06:23
PROVIDERS: Internal Medicine; ADMIT Internal Medicine; ATTEND Internal Medicine
DX: C25.9 Malignant neoplasm of pancreas, unspecified (principal); K86.1 Other chronic pancreatitis; D53.9 Nutritional anemia, unspecified; R79.89 Other specified abnormal findings of blood chemistry; Z79.899 Other long term (current) drug therapy; R74.01 Elevation of levels of liver transaminase levels; F17.200 Nicotine dependence, unspecified, uncomplicated; F12.90 Cannabis use, unspecified, uncomplicated; E55.9 Vitamin D deficiency, unspecified; F90.9 Attention-deficit hyperactivity disorder, unspecified type; F31.9 Bipolar disorder, unspecified; Z53.29 Procedure and treatment not carried out because of patient's decision for other reasons; Z88.5 Allergy status to narcotic agent; Z88.8 Allergy status to other drugs, medicaments and biological substances; Z82.0 Family history of epilepsy and other diseases of the nervous system; Z71.6 Tobacco abuse counseling; Z88.6 Allergy status to analgesic agent; Z80.0 Family history of malignant neoplasm of digestive organs

== ENCOUNTER 2021-08-03 15:00 | Inpatient (IN) | payer OTHER ==
[~2021-08-03] VITALS: Ht 172.7 cm; Wt 63.5 kg
[2021-08-03 15:28] VITALS: BP 119/67
[2021-08-03 18:40] LABS: HEMATOCRIT 44.8 % (42.0-52.0); MEAN CELL VOLUME 95.5 fl (80.0-94.0); MEAN CORPUSCULAR HGB 31.1 pg (27.0-31.0); MEAN CORPUSCULAR HGB CONC 32.6 g/dl (33.0-37.0); MEAN PLATELET VOLUME 9.3 fl (9.6-12.3); PLATELET COUNT AUTOMATED 250 10*3/uL (130-400); RED BLOOD COUNT 4.69 10*6/uL (4.50-5.90); RED CELL DISTRI WIDTH 12.9 % (0-14.5); WHITE BLOOD COUNT 5.6 10*3/uL (4.8-10.8)
[2021-08-03 19:00] LABS: ATYPICAL LYMPHS 4 % (0-0); PLATELET SUFFICIENCY NORMAL (NORMAL); TOTAL CELLS COUNTED 100 #CELLS
[2021-08-03 19:05] LABS: ALBUMIN 4.2 gm/dl (3.1-4.5); ALKALINE PHOSPHATASE 107 U/L (45-117); BUN 11 mg/dl (7-24); CHLORIDE 106 mmol/L (98-107); CREATININE 0.79 mg/dL (0.70-1.30); LIPASE 1017 U/L (73-393); POTASSIUM 3.9 mmol/L (3.5-5.1); SGOT/AST 22 IU/L (3-35); SGPT/ALT 62 U/L (12-78); SODIUM 139 mmol/L (136-145); TOTAL PROTEIN 8.6 gm/dL (6.4-8.2)
[2021-08-03 19:18] LABS: BILIRUBIN Negative (Negative); BLOOD Negative (Negative); CLARITY Clear (Clear); COLOR Yellow (Yellow); GLUCOSE Negative (Negative); KETONE Negative (Negative); LEUKO ESTERASE Negative (Negative); NITRITE Negative (Negative); PH 5.5 (4.5-8.0); SPECIFIC GRAVITY 1.015 (1.001-1.030); UROBILINOGEN 0.2 E.U./dl (0.0-1.0)
[2021-08-03 19:26] LABS: URINE AMPHETAMINES < 1000 (1000ng/ml); URINE BARBITURATES < 200 (200ng/ml); URINE BENZODIAZEPINES < 200 (200ng/ml); URINE CANNABINOIDS (THC) > 50 (50ng/ml); URINE COCAINE < 300 (300ng/ml); URINE METHADONE < 300 (300ng/ml); URINE OPIATES < 300 (300ng/ml)
[2021-08-03 19:27] LABS: URINE PHENCYCLIDINE < 25 (25ng/ml)
[2021-08-03 19:40] LABS: BACTERIA 1+; MUCOUS 1+; WBC 0-2 wbc/hpf (0-5)
[2021-08-03 23:03] VITALS: BP 123/71
[2021-08-04 03:10] LABS: MEAN CELL VOLUME 95.5 fl (80.0-94.0); MEAN CORPUSCULAR HGB 31.1 pg (27.0-31.0); MEAN CORPUSCULAR HGB CONC 32.6 g/dl (33.0-37.0); MEAN PLATELET VOLUME 9.1 fl (9.6-12.3); PLATELET COUNT AUTOMATED 228 10*3/uL (130-400); RED CELL DISTRI WIDTH 12.9 % (0-14.5); WHITE BLOOD COUNT 4.8 10*3/uL (4.8-10.8)
[2021-08-04 03:13] VITALS: BP 118/68
[2021-08-04 03:30] LABS: ATYPICAL LYMPHS 8 % (0-0); BURR CELLS FEW; PLATELET SUFFICIENCY NORMAL (NORMAL); TOTAL CELLS COUNTED 100 #CELLS
[2021-08-04 03:31] LABS: ALBUMIN 3.5 gm/dl (3.1-4.5); ALKALINE PHOSPHATASE 84 U/L (45-117); BUN 9 mg/dl (7-24); CHLORIDE 109 mmol/L (98-107); CHOLESTEROL 122 mg/dL (<200); CREATININE 0.74 mg/dL (0.70-1.30); LDL CHOLESTEROL 64 mg/dL (9-159); SGOT/AST 20 IU/L (3-35); SGPT/ALT 51 U/L (12-78); SODIUM 141 mmol/L (136-145); TOTAL PROTEIN 7.2 gm/dL (6.4-8.2); TRIGLYCERIDES 125 mg/dl (<150)
[2021-08-04 05:00] VITALS: BP 109/75
[2021-08-04 08:00] VITALS: BP 110/78
[2021-08-04 12:00] VITALS: BP 118/78
[2021-08-04 16:00] VITALS: BP 104/85
[2021-08-04 20:00] VITALS: BP 104/59
[2021-08-05] VITALS: BP 110/63
[2021-08-05 07:26] LABS: CHLORIDE 110 mmol/L (98-107); POTASSIUM 3.9 mmol/L (3.5-5.1); SODIUM 142 mmol/L (136-145)
[2021-08-05 07:32] LABS: ALKALINE PHOSPHATASE 63 U/L (45-117); BUN 8 mg/dl (7-24); CREATININE 0.75 mg/dL (0.70-1.30); SGOT/AST 15 IU/L (3-35); SGPT/ALT 39 U/L (12-78); TOTAL PROTEIN 6.2 gm/dL (6.4-8.2)
[2021-08-05 07:34] LABS: HEMATOCRIT 38.9 % (42.0-52.0); MEAN CELL VOLUME 97.3 fl (80.0-94.0); MEAN CORPUSCULAR HGB 31.5 pg (27.0-31.0); MEAN CORPUSCULAR HGB CONC 32.4 g/dl (33.0-37.0); MEAN PLATELET VOLUME 9.7 fl (9.6-12.3); PLATELET COUNT AUTOMATED 186 10*3/uL (130-400); RED CELL DISTRI WIDTH 12.7 % (0-14.5); WHITE BLOOD COUNT 5.2 10*3/uL (4.8-10.8)
[2021-08-05 08:00] VITALS: BP 91/56
[2021-08-05 08:23] LABS: ATYPICAL LYMPHS 3 % (0-0); BASOPHILS 1 % (0-1); PLATELET SUFFICIENCY NORMAL (NORMAL); TOTAL CELLS COUNTED 100 #CELLS
[2021-08-05 12:00] VITALS: BP 104/71
[2021-08-05 15:00] VITALS: BP 112/76
[2021-08-05] MEDS ORDERED: CIPRO500 MG PO (16:43)
[2021-08-05] MEDS ORDERED: METRONIDAZOLE500 M1 PO (16:43)
== END 2021-08-05 19:56 | DRG 248 ==
LOC: ED 15:00 → 4E 23:25 → EDHOLD 23:25 → 4E 08-04 04:16
PROVIDERS: Family Medicine; Internal Medicine; Nurse Practitioner; ADMIT Internal Medicine; ATTEND Internal Medicine
DX: A04.9 Bacterial intestinal infection, unspecified (principal); U07.1 COVID-19; K85.90 Acute pancreatitis without necrosis or infection, unspecified; N30.00 Acute cystitis without hematuria; R45.851 Suicidal ideations; E16.2 Hypoglycemia, unspecified; D53.9 Nutritional anemia, unspecified; F31.5 Bipolar disorder, current episode depressed, severe, with psychotic features; E55.9 Vitamin D deficiency, unspecified; F41.9 Anxiety disorder, unspecified; F90.9 Attention-deficit hyperactivity disorder, unspecified type; F12.90 Cannabis use, unspecified, uncomplicated; F43.21 Adjustment disorder with depressed mood; Z76.5 Malingerer [conscious simulation]; Z88.6 Allergy status to analgesic agent; Z88.5 Allergy status to narcotic agent; Z88.8 Allergy status to other drugs, medicaments and biological substances; Z82.0 Family history of epilepsy and other diseases of the nervous system

== ENCOUNTER 2021-10-08 23:42 | Emergency (ER) | payer OTHER ==
[~2021-10-08] VITALS: Ht 172.7 cm; Wt 63.5 kg
[~2021-10-08 23:42] MED LIST: CIPRO500 MG PO; METRONIDAZOLE500 M1 PO
[2021-10-09] MEDS ORDERED: MEDROL DOSEPAK4 MG PO (00:33)
[2021-10-09] MEDS ORDERED: ZYRTEC10 M3 PO (00:33)
== END 2021-10-09 00:59 | disposition home or self-care (01) ==
LOC: ED 23:42
DX: R22.0 Localized swelling, mass and lump, head (principal); T44.6X5A Adverse effect of alpha-adrenoreceptor antagonists, initial encounter; T78.3XXA Angioneurotic edema, initial encounter; F17.200 Nicotine dependence, unspecified, uncomplicated; Z88.8 Allergy status to other drugs, medicaments and biological substances; Z88.6 Allergy status to analgesic agent; Y92.89 Other specified places as the place of occurrence of the external cause

== ENCOUNTER 2021-11-23 06:34 | Emergency (ER) | payer OTHER ==
[~2021-11-23] VITALS: Wt 55.8 kg
[~2021-11-23 06:34] MED LIST changes: +MEDROL DOSEPAK4 MG PO; +ZYRTEC10 M3 PO
[2021-11-23 07:22] LABS: HEMATOCRIT 46.5 % (42.0-52.0); MEAN CELL VOLUME 90.6 fl (80.0-94.0); MEAN CORPUSCULAR HGB 31.6 pg (27.0-31.0); MEAN CORPUSCULAR HGB CONC 34.8 g/dl (33.0-37.0); MEAN PLATELET VOLUME 9.4 fl (9.6-12.3); PLATELET COUNT AUTOMATED 386 10*3/uL (130-400); RED BLOOD COUNT 5.13 10*6/uL (4.50-5.90); RED CELL DISTRI WIDTH 12.9 % (0-14.5); WHITE BLOOD COUNT 17.1 10*3/uL (4.8-10.8)
[2021-11-23 07:24] LABS: MANUAL DIFF REFLEX YES
[2021-11-23 07:31] LABS: ATYPICAL LYMPHS 1 % (0-0); TOTAL CELLS COUNTED 100 #CELLS
[2021-11-23 07:32] LABS: CREATININE 2.82 mg/dL (0.70-1.30); PLATELET SUFFICIENCY NORMAL (NORMAL); POTASSIUM 4.7 mmol/L (3.5-5.1); TOTAL PROTEIN 10.1 gm/dL (6.4-8.2)
[2021-11-24] MEDS ORDERED: ZOLOFT100 MG PO (09:18)
== END 2021-11-23 10:01 | disposition left against medical advice (07) ==
LOC: ED 06:34
PROVIDERS: Emergency Medicine
DX: R10.10 Upper abdominal pain, unspecified (principal); E86.0 Dehydration; R11.2 Nausea with vomiting, unspecified; R19.7 Diarrhea, unspecified; F31.9 Bipolar disorder, unspecified; F41.9 Anxiety disorder, unspecified; F90.9 Attention-deficit hyperactivity disorder, unspecified type; Z88.8 Allergy status to other drugs, medicaments and biological substances; Z88.5 Allergy status to narcotic agent; Z79.899 Other long term (current) drug therapy; Z87.891 Personal history of nicotine dependence